=== PATIENT | female | born 1970 | race Caucasian/White ===

== ENCOUNTER → 2020-06-18 13:34 | Outpatient (CLI) | payer BC, SELFPAY ==
--- NOTE | ~2020-06-18 | XR_ITS ---
EXAMINATION: XR wrist RT 2V DATE: 06/18/2020 14:33 INDICATION: Multiple joint pain. TECHNIQUE: 2 views of right wrist were obtained. COMPARISON: None. FINDINGS: Bone alignment is normal. No fracture. Joint spaces are well maintained. IMPRESSION: 1. Normal right wrist. Reviewed, dictated and finalized at location A. IMPRESSION: 1. Normal right wrist.
--- NOTE | ~2020-06-18 | XR_ITS ---
EXAMINATION: XR wrist LT 2V DATE: 06/18/2020 14:33 INDICATION: Multiple joint pain. TECHNIQUE: 2 views of left wrist were obtained. COMPARISON: None. FINDINGS: Bone alignment is normal. No fracture. There is mild osteoarthritis of first carpometacarpa l joint. IMPRESSION: 1. Mild osteoarthritis of first carpometacarpal joint. Reviewed, dictated and finalized at location A.
--- NOTE | ~2020-06-18 | XR_ITS ---
EXAMINATION: XR sacroiliac joints min 3V DATE: 06/18/2020 14:33 INDICATION: Multiple joint pain. Myalgia. Malaise/fatigue. TECHNIQUE: Frontal and left and right oblique views of the sacroiliac joints were obtained. COMPARISON: None. FINDINGS: Alignment is normal. No fracture. Sacral arches appear intact. Bilateral sacral iliac joint spaces ap pear normal and symmetric. No subarticular sclerosis or erosions to suggest an inflammatory sacroilii tis. Bilateral hip joint space also appear relatively preserved. Mild lower lumbar facet osteoarthrit is. IMPRESSION: 1. Normal bilateral sacroiliac joints. Reviewed, dictated and finalized at location B.
--- NOTE | ~2020-06-18 | XR_ITS ---
EXAMINATION: XR foot LT 2V, XR ankle LT 2V DATE: 06/18/2020 14:33 INDICATION: TECHNIQUE: 1. Anteroposterior and lateral view of the left ankle were obtained. 2. Dorsoplantar and lateral views of the left foot were obtained. COMPARISON: None. FINDINGS: Alignment of the foot and ankle is normal. No fracture or osteochondral lesion. Severe osteoarthritis at the first metatarsophalangeal joint. Mild osteoarthritis at several of the interphalangeal joints . No cortical erosions. No ankle joint effusion. The soft tissues are unremarkable. IMPRESSION: 1. 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 Reviewed, dictated and finalized at location B. IMPRESSION: 1. 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
--- NOTE | ~2020-06-18 | XR_ITS ---
EXAMINATION: XR foot RT 2V, XR ankle RT 2V DATE: 06/18/2020 14:33 INDICATION: Multiple joint pain, myalgia amylase/fatigue. TECHNIQUE: 1. Anteroposterior and lateral view of the right ankle were obtained. 2. Dorsoplantar and lateral views of the right foot were obtained. COMPARISON: None. FINDINGS: Alignment of the foot and ankle is normal. No fracture or osteochondral lesion. Mild to moderate oste oarthritis at the first metatarsophalangeal and a few interphalangeal joints. No cortical erosions. N o ankle joint effusion. The soft tissues are unremarkable. IMPRESSION: 1. 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 Reviewed, dictated and finalized at location B. IMPRESSION: 1. 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
--- NOTE | ~2020-06-18 | XR_ITS ---
EXAMINATION: XR hand LT 2V DATE: 06/18/2020 14:33 INDICATION: Multiple joint pain. TECHNIQUE: 2 views of left hand were obtained. COMPARISON: None. FINDINGS: Bone alignment is normal. No fracture. There is mild osteoarthritis of first carpometacarpa l joint and first interphalangeal joint. IMPRESSION: 1. Mild polyarticular osteoarthritis. Reviewed, dictated and finalized at location A.
--- NOTE | ~2020-06-18 | XR_ITS ---
EXAMINATION: XR hand RT 2V DATE: 06/18/2020 14:33 INDICATION: Multiple joint pain. TECHNIQUE: 2 views of right hand were obtained. COMPARISON: None. FINDINGS: Bone alignment is normal. No fracture. There is mild osteoarthritis of first metacarpophala ngeal joint and third and fifth distal interphalangeal joints. IMPRESSION: 1. Mild polyarticular osteoarthritis. Reviewed, dictated and finalized at location A.
== END ==
PROVIDERS: Visit Provider Internal Medicine Rheumatology
DX: M79.10 Myalgia, unspecified site (principal); R53.81 Other malaise; R53.83 Other fatigue; M19.042 Primary osteoarthritis, left hand; M19.071 Primary osteoarthritis, right ankle and foot; M19.032 Primary osteoarthritis, left wrist; M19.072 Primary osteoarthritis, left ankle and foot
CPT/HCPCS: 72202; 73100; 73120; 73600; 73620